=== PATIENT | female | born 1950 | race Caucasian/White ===

== ENCOUNTER → 2019-11-08 | Outpatient (CLI) | payer OTHER | END | disposition home or self-care (01) | LOC: GI 07:32 | DX: R93.3 Abnormal findings on diagnostic imaging of other parts of digestive tract (principal); K57.30 Diverticulosis of large intestine without perforation or abscess without bleeding; K64.8 Other hemorrhoids; K21.9 Gastro-esophageal reflux disease without esophagitis; Z86.010 Personal history of colon polyps; Z98.890 Other specified postprocedural states | CPT/HCPCS: 62110; 62900 ==